=== PATIENT | female | born 1995 | race Caucasian/White ===

== ENCOUNTER 2019-01-31 17:43 | Emergency (ER) | payer OTHER ==
--- NOTE | 2019-01-31 17:59 | NUR ---
PT AMBULATED TO BED 08.
--- NOTE | 2019-01-31 18:03 | NUR ---
PT STATED SHE DRANK ETOH A LOT WITH FRIENDS LAST NIGHT---C/O HYPERNAUSEA/ EMESIS, TIRED---- PT QUESTIONED HERSELF IF SHE WANTED TO STAY TO BE SEEN FOR C/O; ENCOURAGED TO RETURN FOR ANY MEDICAL EMERGENCY STATED WILL GO HOME AND REST
== END 2019-01-31 18:03 | disposition left against medical advice (07) ==
LOC: MED 17:43
DX: R11.10 Vomiting, unspecified (principal); Z53.21 Procedure and treatment not carried out due to patient leaving prior to being seen by health care provider